=== PATIENT | female | born 1990 | race Caucasian/White ===

== ENCOUNTER 2018-04-16 01:30 | Emergency (ER) | payer OTHER ==
[2018-04-16] MEDS: HYDROCODONE/APAP (10/325) TAB PO (02:29)
[2018-04-16] MEDS: IBUPROFEN 600 MG TAB PO (02:29)
== END 2018-04-16 04:13 | disposition home or self-care (01) ==
LOC: FTE 01:30
DX: S92.312A Displaced fracture of first metatarsal bone, left foot, initial encounter for closed fracture (principal); S92.322A Displaced fracture of second metatarsal bone, left foot, initial encounter for closed fracture; W20.8XXA Other cause of strike by thrown, projected or falling object, initial encounter; Y92.9 Unspecified place or not applicable
CPT/HCPCS: 29515; 73630-LT; 99283-25